=== PATIENT | female | born 1990 | race African-American/Black ===

== ENCOUNTER 2019-09-30 12:05 | Observation (INO) | payer MEDICAID ==
[~2019-09-30] VITALS: Ht 167.6 cm; Wt 81.6 kg
== END 2019-09-30 13:45 | disposition home or self-care (01) ==
LOC: 8 EST LDRP 12:05
PROVIDERS: ADMIT Obstetrics & Gynecology; ATTEND Obstetrics & Gynecology
DX: O26.893 Other specified pregnancy related conditions, third trimester (principal); R10.2 Pelvic and perineal pain; K59.00 Constipation, unspecified; R10.30 Lower abdominal pain, unspecified; Z3A.34 34 weeks gestation of pregnancy
CPT/HCPCS: 99281; G0378

== ENCOUNTER 2019-10-15 08:28 | Observation (INO) | payer MEDICAID ==
[~2019-10-15] VITALS: Ht 167.6 cm; Wt 81.6 kg
[2019-10-15] MEDS ORDERED: LACTATED RINGERS 1,000 ML IV SCH (14:15)
[2019-10-15 14:30] LABS: BASOPHILS % 0.3 % (0.0-2.0); EOSINOPHILS % 1.2 % (0.0-5.0); HEMATOCRIT. 30.4 % (36.0-48.0); HEMOGLOBIN. 10.1 g/dL (12.0-16.0); LYMPHOCYTES % 17.5 % (20.0-50.0); MEAN CORPUSCULAR HEMOGLOBIN 27.8 pg (28.0-32.0); MEAN CORPUSCULAR VOLUME 83.2 fL (81.0-99.0); MONOCYTES % 4.5 % (2.0-8.0); NEUTROPHILS % 76.5 % (40.0-76.0); PLATELET 228 x1000/uL (130-400); RED BLOOD CELL COUNT 3.65 mill/uL (4.2-5.4); RED CELL DISTRIBUTION WIDTH 13.2 % (11.6-14.6)
[2019-10-15 15:03] LABS: CHLORIDE 106 mEq/L (98-107)
[2019-10-15] MEDS ORDERED: BETAMETHASONE ACET/BETAMET 30 MG/5 ML VIAL IM NR (15:30)
[2019-10-15] MEDS ORDERED: PNV1TABL76 MT (16:57)
== END 2019-10-15 17:00 | disposition home or self-care (01) ==
LOC: 8 EST LDRP 08:28
PROVIDERS: ADMIT Obstetrics & Gynecology; ATTEND Obstetrics & Gynecology
DX: Z34.83 Encounter for supervision of other normal pregnancy, third trimester (principal); Z3A.34 34 weeks gestation of pregnancy
CPT/HCPCS: 36415; 76700; 76805; 76818; 80053; 85025; 96360; 96361; 96372; 99281; G0378; J0702

== ENCOUNTER 2019-10-23 13:19 | Observation (INO) | payer MEDICAID ==
[~2019-10-23 13:19] MED LIST: PNV1TABL76 MT
== END 2019-10-23 14:45 | disposition home or self-care (01) ==
LOC: 8 EST LDRP 13:19
PROVIDERS: ADMIT Obstetrics & Gynecology; ATTEND Obstetrics & Gynecology
DX: O42.913 Preterm premature rupture of membranes, unspecified as to length of time between rupture and onset of labor, third trimester (principal); O36.8130 Decreased fetal movements, third trimester, not applicable or unspecified; Z3A.35 35 weeks gestation of pregnancy
CPT/HCPCS: G0378

== ENCOUNTER 2019-10-31 18:57 | Observation (INO) | payer MEDICAID ==
[~2019-10-31] VITALS: Ht 167.6 cm; Wt 81.6 kg
[2019-10-31] MEDS ORDERED: ACETAMINOPHEN 500MG TABLET PO NR (20:00)
== END 2019-10-31 22:07 | disposition home or self-care (01) ==
LOC: 8 EST LDRP 18:57
PROVIDERS: ADMIT Obstetrics & Gynecology; ATTEND Obstetrics & Gynecology
DX: O9A.213 Injury, poisoning and certain other consequences of external causes complicating pregnancy, third trimester (principal); O26.893 Other specified pregnancy related conditions, third trimester; R10.30 Lower abdominal pain, unspecified; M54.9 Dorsalgia, unspecified; Z3A.36 36 weeks gestation of pregnancy
CPT/HCPCS: 76805; 76818; 99281; G0378

== ENCOUNTER 2019-11-04 08:53 | Observation (INO) | payer MEDICAID ==
[~2019-11-04] VITALS: Ht 167.6 cm; Wt 81.6 kg
[2019-11-04 09:57] LABS: PARTIAL THROMBOPLASTIN TIME 27.1 sec (23.4-31.0)
[2019-11-04 10:02] LABS: BASOPHILS % 0.3 % (0.0-2.0); EOSINOPHILS % 1.5 % (0.0-5.0); HEMATOCRIT. 30.5 % (36.0-48.0); HEMOGLOBIN. 10.2 g/dL (12.0-16.0); LYMPHOCYTES % 23.6 % (20.0-50.0); MEAN CORPUSCULAR HEMOGLOBIN 27.1 pg (28.0-32.0); MEAN CORPUSCULAR VOLUME 81.3 fL (81.0-99.0); MEAN PLATELET VOLUME 9.5 fl (7.4-10.4); MONOCYTES % 9.2 % (2.0-8.0); NEUTROPHILS % 65.4 % (40.0-76.0); PLATELET 221 x1000/uL (130-400); RED BLOOD CELL COUNT 3.75 mill/uL (4.2-5.4); RED CELL DISTRIBUTION WIDTH 14.4 % (11.6-14.6)
== END 2019-11-04 12:30 | disposition home or self-care (01) ==
LOC: 8 EST LDRP 08:53
PROVIDERS: ADMIT Obstetrics & Gynecology; ATTEND Obstetrics & Gynecology
DX: O9A.213 Injury, poisoning and certain other consequences of external causes complicating pregnancy, third trimester (principal); Z3A.37 37 weeks gestation of pregnancy; V89.2XXA Person injured in unspecified motor-vehicle accident, traffic, initial encounter; Y93.9 Activity, unspecified; Y92.9 Unspecified place or not applicable
CPT/HCPCS: 36415; 76805; 76818; 85025; 85610; 85730; 99281; G0378

== ENCOUNTER 2020-11-30 02:31 | Emergency (ER) | payer MEDICAID ==
[~2020-11-30] VITALS: Ht 162.6 cm; Wt 88.0 kg
[2020-11-30] MEDS ORDERED: KETOROLAC 30MG/ML VIAL IM ONE (03:00)
[2020-11-30] MEDS ORDERED: FAMOTIDINE 20MG TABLET PO ONE (03:00)
[2020-11-30] MEDS ORDERED: ONDANSETRON 4MG ODT PO ONE (03:00)
[2020-11-30] MEDS ORDERED: ONDANSETRON HCL 4MG/2ML INJ IV STA (03:10)
[2020-11-30] MEDS ORDERED: SODIUM CHLORIDE 0.9% 1,000 ML IV ONE (03:15)
[2020-11-30] MEDS ORDERED: FAMOTIDINE 20MG/2ML VIAL IV ONE (03:15)
[2020-11-30 04:04] LABS: BASOPHILS % 0.6 % (0.0-2.0); EOSINOPHILS % 0.1 % (0.0-5.0); HEMATOCRIT. 40.4 % (36.0-48.0); HEMOGLOBIN. 13.2 g/dL (12.0-16.0); LYMPHOCYTES % 12.7 % (20.0-50.0); MEAN CORPUSCULAR HEMOGLOBIN 28.9 pg (28.0-32.0); MEAN CORPUSCULAR VOLUME 88.2 fL (81.0-99.0); MEAN PLATELET VOLUME 9.3 fl (7.4-10.4); MONOCYTES % 4.5 % (2.0-8.0); NEUTROPHILS % 82.1 % (40.0-76.0); PLATELET 300 x1000/uL (130-400); RED BLOOD CELL COUNT 4.58 mill/uL (4.2-5.4); RED CELL DISTRIBUTION WIDTH 14.2 % (11.6-14.6)
[2020-11-30 04:09] LABS: CHLORIDE 105 mEq/L (98-107)
[2020-11-30] MEDS ORDERED: MORPHINE SULFATE 4 MG/ML CPJ (NOT FOR IM USE) IV ONE (04:15)
[2020-11-30] MEDS ORDERED: MIDAZOLAM HCL 2 MG/2 ML VIAL IV ONE (04:15)
[2020-11-30 07:45] VITALS: BP 132/60
== END 2020-11-30 07:46 | disposition home or self-care (01) ==
LOC: ER 02:31
DX: R10.84 Generalized abdominal pain (principal); R11.2 Nausea with vomiting, unspecified; Z85.028 Personal history of other malignant neoplasm of stomach
CPT/HCPCS: 36415; 71045; 80053; 83690; 85025; 93005; 96361; 96372; 96374; 96375; 99285; J1885; J2250; J2270; J2405; J3490; J7030; Q0162